=== PATIENT | male | born 1970 | race Caucasian/White ===

== ENCOUNTER 2021-01-28 10:45 | Outpatient (REF) | payer OTHER, SELFPAY ==
--- NOTE | ~2021-01-28 | XR_ITS ---
EXAMINATION: XR THORACIC SPINE XR LUMBAR SPINE CLINICAL INFORMATION: Back pain. COMPARISON: None TECHNIQUE: Three-view thoracic spine and three-view lumbar spine. FINDINGS: Three views of the thoracic spine do not demonstrate any evidence of acute fracture. There is minimal scoliosis convex left which may be positional in nature. Disc spaces intact. Pedicles unremarkable. No abnormal paraspinal line bulge is seen. Views of the lumbar spine do not demonstrate any evidence of acute fracture, spondylolisthesis, or spondylolysis. Disc spaces are maintained. Minimal sclerosis and spurring inferior sacroiliac joints seen bilaterally. XR/XR lumbar spine 2-3V IMPRESSION: No significant bony abnormality of the thoracic or lumbar spine.
--- NOTE | ~2021-01-28 | XR_ITS ---
EXAMINATION: XR THORACIC SPINE XR LUMBAR SPINE CLINICAL INFORMATION: Back pain. COMPARISON: None TECHNIQUE: Three-view thoracic spine and three-view lumbar spine. FINDINGS: Three views of the thoracic spine do not demonstrate any evidence of acute fracture. There is minimal scoliosis convex left which may be positional in nature. Disc spaces intact. Pedicles unremarkable. No abnormal paraspinal line bulge is seen. Views of the lumbar spine do not demonstrate any evidence of acute fracture, spondylolisthesis, or spondylolysis. Disc spaces are maintained. Minimal sclerosis and spurring inferior sacroiliac joints seen bilaterally. XR/XR thoracic spine 3V IMPRESSION: No significant bony abnormality of the thoracic or lumbar spine.
== END 2021-01-28 10:46 | disposition home or self-care (01) ==
LOC: HO.XRAY 10:45
PROVIDERS: PCP Internal Medicine; Visit Provider Psychiatry & Neurology Neurology
DX: M54.9 Dorsalgia, unspecified (principal)
CPT/HCPCS: 72072; 72100